=== PATIENT | female | born 1970 | race Caucasian/White ===

== ENCOUNTER 2016-07-19 16:34 | Emergency (ER) | payer MEDICAID ==
[~2016-07-19] VITALS: Ht 160 cm; Wt 77.0 kg
[2016-07-19 16:41] VITALS: Ht 160 cm; Wt 77.0 kg
[2016-07-19] MEDS ORDERED: KETOROLAC 30 MG INJ IM STA (17:00)
[2016-07-19 17:28] LABS: ADD SCAN DIFF NO
[2016-07-19 17:46] LABS: POTASSIUM 3.8 mmol/L (3.5-5.1)
[2016-07-19 17:49] LABS: CREATININE 0.87 mg/dl (0.44-1.00)
--- NOTE | 2016-07-19 17:49 | ERD ---
ER Documentation Chief Complaint Date/Time DATE: 07/19/16 TIME: 17:49 Chief Complaint lt knee pain x 1 week HPI 46-year-old female ambulatory to the ED complaining of a one-week history of worsening, atraumatic, sharp and achy left upper calf/knee pain. Pain is exacerbated by walking and movement. No history of trauma or injury. No hip or ankle pain. No redness or warmth. Otherwise asymptomatic. No abdominal pain, nausea vomiting. No chest pain or palpitations. No shortness of breath or cough. No fevers or chills. ROS All systems reviewed and are negative except as per history of present illness. Medications Home Meds Active Scripts Diflunisal (Dolobid) 500 Mg Tablet, 500 MG PO BID WITH MEALS Y for PAIN AND/OR INFLAMMATION, #14 TAB Prov:HANNAH KHALIL MD 07/19/16 Allergies Allergies: Coded Allergies: No Known Allergy (Unverified , 07/19/16) PMhx/Soc Reviewed in chart. As per HPI. History of Surgery: Yes Anesthesia Reaction: No Hx Neurological Disorder: No Hx Respiratory Disorders: No Hx Cardiac Disorders: No Hx Psychiatric Problems: No Hx Miscellaneous Medical Probl: No Hx Alcohol Use: No Hx Substance Use: No Hx Tobacco Use: No FmHx No stroke or cancer. Not relevant to presenting complaint. Physical Exam Vitals Vital Signs Date Time Temp Pulse Resp B/P Pulse Ox O2 Delivery O2 Flow Rate FiO2 07/19/16 16:41 98.2 77 16 132/75 98 Physical Exam Const: Mild due to pain. Head: Atraumatic Eyes: Normal Conjunctiva ENT: Normal External Ears, Nose and Mouth. Neck: Full range of motion. Nontender. Resp: Clear to auscultation bilaterally Cardio: Regular rate and rhythm, no murmurs Abd: Soft, non tender, non distended. Normal bowel sounds Skin: No petechiae or rashes Back: No midline or flank tenderness Ext: Left lower extremity: Tenderness upper, lateral calf. No swelling or erythema. No knee swelling or effusion. Nontender. Negative drawer sign. Stable. No skin changes, erythema or induration. No ankle or hip swelling or tenderness. Neur: Awake and alert. No focal deficit observed. Psych: Normal Mood and Affect Result Diagram: 5/3/17 1710 5/3/17 1710 Results 24 hrs Laboratory Tests Test 07/19/16 17:10 White Blood Count 7.410^3/ul Red Blood Count 4.5810^6/ul Hemoglobin 13.2g/dl Hematocrit 39.9% Mean Corpuscular Volume 87.1fl Mean Corpuscular Hemoglobin 28.8pg Mean Corpuscular Hemoglobin Concent 33.1g/dl Red Cell Distribution Width 13.6% Platelet Count 16908^3/UL Mean Platelet Volume 10.5fl Neutrophils % 54.1% Lymphocytes % 33.5% Monocytes % 5.4% Eosinophils % 6.2% Basophils % 0.5% Nucleated Red Blood Cells % 0.0/100WBC Neutrophils # 4.010^3/ul Lymphocytes # 2.510^3/ul Monocytes # 0.410^3/ul Eosinophils # 0.510^3/ul Basophils # 0.010^3/ul Nucleated Red Blood Cells # 0.010^3/ul Sodium Level 139mmol/L Potassium Level 3.8mmol/L Chloride Level 99mmol/L Carbon Dioxide Level 28mmol/L Anion Gap 16 Blood Urea Nitrogen 15mg/dl Creatinine 0.87mg/dl Glucose Level 126mg/dl Calcium Level 9.1mg/dl Current Medications Medications (Trade) Dose Ordered Sig/Holden Route PRN Reason Start Time Stop Time Status Last Admin Dose Admin Ketorolac Tromethamine (Toradol) 30 mg ONCE STAT IM 07/19/16 17:00 07/19/16 17:01 DC 07/19/16 17:26 IMAGING: PROCEDURE: US DVT. CLINICAL INDICATION: Left calf pain. TECHNIQUE: Multiple longitudinal and transverse images of the left lower extremity veins were obtained with rosales scale and color Doppler imaging. 2D grayscale measurements with compression, color Doppler flow, and augmentation was performed. The calf veins were interrogated as well. COMPARISON: No prior studies are available for comparison. FINDINGS: The left common femoral, superficial femoral and popliteal veins are normally compressible throughout. Color flow demonstrates normal filling of the vessel. Normal waveforms are visualized and there is normal response to augmentation. IMPRESSION: 1. No evidence of a deep vein thrombosis involving the left lower extremity. RPTAT: [facility] Physician Reva Date Time Electronically viewed and signed by Physician Reva on 07/19/2016 18: 16 JH/ Procedures/MDM DOCUMENTS REVIEWED: ED nurse, prior ED ED COURSE: Ketorolac 30 mg IM REEXAMINATION/REEVALUATION: Time: 18:15. Pain diminished. Feels better. MEDICAL DECISION MAKIN-year-old female ambulatory to the ED complaining of a one-week history of worsening, atraumatic, sharp and achy left upper calf/ knee pain. Ultrasound negative for DVT. The exam is essentially negative there is no sign of fracture or indication for imaging. No knee effusion, warmth, tenderness or other signs of septic arthritis. Etiology of her symptoms are not established but in the absence of signs of serious disease she is stable for discharge with appropriate analgesics, precautionary instructions and outpatient follow-up as counseled. Counseled patient regarding diagnostic workup, diagnosis and need for followup. Understands to return to ED if symptoms recur, worsen or any other concerns. Departure Diagnosis: Primary Impression: Pain of left calf Additional Impression: Knee pain Laterality: left Chronicity: acute Qualified Code: M25.562 - Acute pain of left knee Condition: Stable HANNAH KHALIL MD July 19, 2016 17:49
[2016-07-19 17:50] LABS: CALCIUM 9.1 mg/dl (8.4-10.2)
--- NOTE | 2016-07-19 18:16 | RADRPT ---
PROCEDURE: US DVT. CLINICAL INDICATION: Left calf pain. TECHNIQUE: Multiple longitudinal and transverse images of the left lower extremity veins were obta ined with rosales scale and color Doppler imaging. 2D grayscale measurements with compression, color D oppler flow, and augmentation was performed. The calf veins were interrogated as well. COMPARISON: No prior studies are available for comparison. FINDINGS: The left common femoral, superficial femoral and popliteal veins are normally compressible throughou t. Color flow demonstrates normal filling of the vessel. Normal waveforms are visualized and there is normal response to augmentation. IMPRESSION: 1. No evidence of a deep vein thrombosis involving the left lower extremity. RPTAT: [facility] Physician Reva Date Time Electronically viewed and signed by Physician Reva on 07/19/2016 18:16 /
[2016-07-19 18:29] LABS: BASOPHILS % 0.5 % (0.0-2.0); EOSINOPHILS # 0.5 10^3/ul (0.0-0.5); EOSINOPHILS % 6.2 % (0.0-7.0); HEMATOCRIT 39.9 % (37.0-47.0); HEMOGLOBIN 13.2 g/dl (12.0-16.0); LYMPHOCYTES # 2.5 10^3/ul (0.8-2.9); LYMPHOCYTES % 33.5 % (15.0-51.0); MEAN CORPUSCULAR HEMOGLOBIN 28.8 pg (29.0-33.0); MEAN CORPUSCULAR HGB CONC 33.1 g/dl (32.0-37.0); MEAN CORPUSCULAR VOLUME 87.1 fl (82.0-101.0); MEAN PLATELET VOLUME 10.5 fl (7.4-10.4); MONOCYTE # 0.4 10^3/ul (0.3-0.9); MONOCYTES % 5.4 % (0.0-11.0); NEUTROPHILS % 54.1 % (39.0-77.0); PLATELET COUNT 270 10^3/UL (140-415); RED BLOOD COUNT 4.58 10^6/ul (4.20-5.40); RED CELL DISTRIBUTION WIDTH 13.6 % (11.5-14.5); WHITE BLOOD COUNT 7.4 10^3/ul (4.8-10.8)
[2016-07-19] MEDS ORDERED: DIFL500T PO (18:35)
[2016-07-19 18:48] VITALS: BP 112/66; PULSE 61; RESP 20; TEMP 98.2
== END 2016-07-19 18:49 | disposition home or self-care (01) ==
LOC: E/R 16:34
DX: M79.662 Pain in left lower leg (principal)
CPT/HCPCS: 80048; 85025; 93971; 96372; J1885; Z7502